=== PATIENT | male | born 1970 | race Caucasian/White ===

== ENCOUNTER 2018-03-24 13:00 | Emergency (ER) | payer OTHER ==
[~2018-03-24] VITALS: Ht 182.9 cm; Wt 90.7 kg
[2018-03-24] MEDS ORDERED: SODIUM CHLORIDE 0.9% 1,000 ML IVB ONE (13:19)
[2018-03-24] MEDS ORDERED: LORazepam 2MG/ML-1ML VIAL IV ONE (13:30)
[2018-03-24 13:41] VITALS: BP 148/95
[2018-03-24 14:34] LABS: Basophils # (auto) 0 uL; Basophils % (auto) 0.6 % (0.0-2.0); Eosinophils # (auto) 0.1 uL; Eosinophils % (auto) 1.3 % (0.0-7.0); Hematocrit 48.7 % (41.0-53.0); Hemoglobin 16.6 g/dL (13.5-17.5); Lymphocytes # (auto) 3.6 uL; Lymphocytes % (auto) 52.6 % (10.0-50.0); Mean Corpuscular Hemoglobin 33.7 pg (28.0-32.0); Mean Corpuscular Hgb Conc. 34.1 g/dL (32.0-36.0); Mean Corpuscular Volume 98.8 fL (80.0-100.0); Monocytes # (auto) 0.6 uL; Monocytes % (auto) 8.1 % (0.0-12.0); Neutrophils # (auto) 2.5 uL; Neutrophils % (auto) 37.4 % (37.0-80.0); Nucleated Red Blood Cells % 0.1 %; Platelet Count (auto) 199 10^3/uL (140-450); Red Blood Cells 4.93 10^6/uL (4.5-5.90); Red Cell Distribution Width 13.6 % (11.8-14.3); White Blood Cell 6.8 10^3/uL (4.4-10.8)
[2018-03-24 14:52] LABS: Calcium 8.2 mg/dL (8.5-10.1)
[2018-03-24 14:56] LABS: BUN/Creatinine Ratio 13.1
[2018-03-24 15:01] LABS: Bilirubin, Total 0.5 mg/dL (0.2-1.0); Total Protein 7.8 g/dL (6.4-8.2)
== END 2018-03-24 17:25 | disposition left against medical advice (07) ==
LOC: ER 13:00
DX: F10.10 Alcohol abuse, uncomplicated (principal); F12.10 Cannabis abuse, uncomplicated; F17.210 Nicotine dependence, cigarettes, uncomplicated; I25.2 Old myocardial infarction; Z90.89 Acquired absence of other organs; Z95.1 Presence of aortocoronary bypass graft; Z53.29 Procedure and treatment not carried out because of patient's decision for other reasons
CPT/HCPCS: 36415; 80053; 80320; 85025; 94761